=== PATIENT | female | born 1980 | race African-American/Black ===

== ENCOUNTER 2018-02-05 00:24 | Emergency (ER) | payer OTHER ==
[~2018-02-05] VITALS: Ht 152.4 cm; Wt 55.0 kg
[2018-02-05 00:59] VITALS: BP 113/67; PULSE 108; RESP 18; TEMP 98.6; O2SAT 99
[2018-02-05] MEDS ORDERED: SODIUM CHLOR 0.9% 1000 ML INJ 1,000 ML IV SCH (02:31)
--- NOTE | 2018-02-05 02:37 | PD ---
HPI Chief Complaint: ENT Complaint Time Seen by Provider: 02:31 Travel History International Travel<30 days: No Contact w/Intl Traveler<30days: No Traveled to known affect area: No History of Present Illness HPI 37-year-old female presents for evaluation of sore throat. It hurts to swallow. Symptoms started 5 days ago. She reports associated nausea. Denies vomiting, fevers or chills, cough or congestion. In addition the patient has had a small bump on her left antonio for the past few days which is tender. She has no other complaints at this time. [facility] Past Medical History Medical History: Denies Significant Hx Diminished Hearing: No Tetanus Vaccination: Unknown Influenza Vaccination: No ?: Not LMP: 01/19/2018 Past Surgical History Section: Yes Social History Alcohol Use: No Tobacco Use: No Substance Use: No Allergies-Medications (Allergen,Severity, Reaction): Coded Allergies: No Known Allergies (Unverified Allergy, Unknown, 02/05/18) Reported Meds & Prescriptions Reported Meds & Active Scripts Active Ibuprofen 600 Mg Tab 600 Mg PO TID PRN Nystatin Liq 100,000 unit/ml Susp 5 Ml SWISH-SWAL QID 10 Days Review of Systems Except as stated in HPI: all other systems reviewed are Neg Physical Exam Narrative GENERAL: Well-developed well-nourished female no acute distress SKIN: Warm and dry. HEAD: Atraumatic. Normocephalic. EYES: Pupils equal and round. No scleral icterus. No injection or drainage. ENT: No nasal bleeding or discharge. Mucous membranes pink and moist. Thrush noted on the tongue. The patient has trismus and it is difficult to see her oropharynx after multiple attempts. NECK: Trachea midline. No JVD. There is no lymphadenopathy. CARDIOVASCULAR: Regular rate and rhythm. No murmur appreciated. RESPIRATORY: No accessory muscle use. Clear to auscultation. Breath sounds equal bilaterally. GASTROINTESTINAL: Abdomen soft, non-tender, nondistended. Hepatic and splenic margins not palpable. MUSCULOSKELETAL: No obvious deformities. No clubbing. No cyanosis. No edema. NEUROLOGICAL: Awake and alert. No obvious cranial nerve deficits. Motor grossly within normal limits. Normal speech. PSYCHIATRIC: Appropriate mood and affect; insight and judgment normal. Data Data Last Documented VS Vital Signs Date Time Temp Pulse Resp B/P (MAP) Pulse Ox O2 Delivery O2 Flow Rate FiO2 3/18/18 12:38 94 20 111/75 (87) 99 02/05/18 08:13 97.3 Room Air Orders Orders Hiv Antibody Screen (02/05/18 02:31) Ct Soft Tiss Neck W Iv Cont (02/05/18 ) Basic Metabolic Panel (Bmp) (02/05/18 02:31) Complete Blood Count With Diff (02/05/18 02:31) Lactic Acid (02/05/18 02:31) Iv Access Insert/Monitor (02/05/18 02:31) Sodium Chlor 0.9% 1000 Ml Inj (Ns 1000 M (02/05/18 02:31) Ketorolac Inj (Toradol Inj) (02/05/18 02:45) Ed Urine Pregnancytest Poc (02/05/18 02:31) Group A Rapid Strep Screen (02/05/18 02:31) Ondansetron Inj (Zofran Inj) (02/05/18 02:45) Strep Culture (Group A) (02/05/18 04:00) Nystatin (Mycostatin) (02/05/18 06:15) Chest, Single Ap (02/05/18 ) Iohexol 350 Inj (Omnipaque 350 Inj) (02/05/18 06:25) Ct Abd/Pel W/O Iv Contrast (02/05/18 06:57) Ct Thorax/ Chest Wo Iv Contras (02/05/18 ) Morphine Inj (Morphine Inj) (02/05/18 07:45) Sodium Chlor 0.9% 1000 Ml Inj (Ns 1000 M (02/05/18 08:30) Ed Discharge Order (02/05/18 09:26) Mandatory Outpatient Referral (02/05/18 09:26) Labs Laboratory Tests Test 02/05/18 03:52 White Blood Count 8.2 TH/MM3 Red Blood Count 2.69 MIL/MM3 Hemoglobin 9.0 GM/DL Hematocrit 26.1 % Mean Corpuscular Volume 97.0 FL Mean Corpuscular Hemoglobin 33.3 PG Mean Corpuscular Hemoglobin Concent 34.3 % Red Cell Distribution Width 16.9 % Platelet Count 313 TH/MM3 Mean Platelet Volume 7.6 FL Neutrophils (%) (Auto) 48.0 % Lymphocytes (%) (Auto) 39.9 % Monocytes (%) (Auto) 11.6 % Eosinophils (%) (Auto) 0.4 % Basophils (%) (Auto) 0.1 % Neutrophils # (Auto) 3.9 TH/MM3 Lymphocytes # (Auto) 3.3 TH/MM3 Monocytes # (Auto) 1.0 TH/MM3 Eosinophils # (Auto) 0.0 TH/MM3 Basophils # (Auto) 0.0 TH/MM3 CBC Comment AUTO DIFF Differential Total Cells Counted 100 Neutrophils % (Manual) 50 % Band Neutrophils % 2 % Lymphocytes % 27 % Monocytes % 10 % Eosinophils % 1 % Neutrophils # (Manual) 4.4 TH/MM3 Myelocytes 2 % Differential Comment FINAL DIFF MANUAL Atypical Lymphocytes 8 % Platelet Estimate NORMAL Platelet Morphology Comment NORMAL Red Cell Morphology Comment NORMAL Blood Urea Nitrogen 30 MG/DL Creatinine 0.92 MG/DL Random Glucose 89 MG/DL Calcium Level 9.4 MG/DL Sodium Level 142 MEQ/L Potassium Level 4.6 MEQ/L Chloride Level 109 MEQ/L Carbon Dioxide Level 24.4 MEQ/L Anion Gap 9 MEQ/L Estimat Glomerular Filtration Rate 82 ML/MIN Lactic Acid Level 1.1 mmol/L HIV (1&2) Ab and P24 Ag, 4th Gener REFLEX MDM Medical Decision Making Medical Screen Exam Complete: Yes Emergency Medical Condition: Yes Medical Record Reviewed: Yes Differential Diagnosis Thrush, esophagitis, peritonsillar abscess, pharyngitis, tonsillitis Narrative Course The patient has thrush in her mouth. I am unable to see her oropharynx as she has significant difficulty opening her mouth and gag reflex when attempting to use a tongue depressor. She reports that her of HIV last year and she avoided being tested because she was scared. Plan is for lab work, CT soft tissue neck. She will be given IV fluids, Toradol, Zofran. CBC reveals a hemoglobin of 9.0 otherwise unremarkable, BMP reveals a BUN of 30 otherwise unremarkable, lactic acid is within normal limits. Upon reexamination the patient feels improved after the administration of fluids and Toradol. Still unable to visualize her oropharynx. Oral nystatin has been ordered. The patient now mentions that she has had a cough for the past few months as well and therefore chest x-ray has been ordered. Given the history, new onset thrush, with history of HIV, the concern is that the patient has new onset HIV. The possibility of admission for further treatment of this was discussed with the patient however she reports that she has children at home and would prefer to follow-up with infectious disease specialist as an outpatient. CT imaging of the soft tissue neck: CONCLUSION: 1. Multiple borderline prominent lymph nodes in both cervical chains as well as the axilla. While these could be reactive, I would suggest additional images of the chest and abdomen to evaluate for additional lymph nodes as findings could be characteristic of lymphoma. 2. There is some soft tissue density anterior mediastinum. Again, this can be further evaluated with a dedicated post contrasted CT scan of the chest. 3. Prominence of the adenoidal tissues. Therefore CT of the abdomen and pelvis and thorax have been ordered. The oncoming provider will follow up on these results. The HIV antibody test is currently pending. I have written down the name of 2 local infectious disease specialist whom the patient could follow-up with upon discharge. A prescription for nystatin has also been written. Additional Instructions: Follow-up with an infectious disease specialist such as: Dr. Darinel Ochoa at [phone]) OR Dr. Adrian Ibarra at [address] B Scripts Ibuprofen (Ibuprofen) 600 Mg Tab 600 MG PO TID Y for PAIN SCALE 1 TO 10, #21 TAB 0 Refills Prov: Karen Mar 02/05/18 Nystatin Liq (Nystatin Liq) 100,000 unit/ml Susp 5 ML SWISH-SWAL QID for Infection for 10 Days, ML 0 Refills Prov: Balaji Puentes MD 02/05/18 Kem Daniels Feb 05, 2018 02:37
[2018-02-05] MEDS ORDERED: KETOROLAC TROMETHAMINE 30 MG/ML (IVP) VIAL IVP ONE (02:45)
[2018-02-05] MEDS ORDERED: ONDANSETRON HCL 4 MG/2 ML VIAL IV PUSH ONE (02:45)
[2018-02-05 04:05] VITALS: BP 115/74; PULSE 102; RESP 18; O2SAT 100
[2018-02-05 04:42] LABS: AUTOMATED NEUTROPHIL # 3.9 TH/MM3 (1.8-7.7); BASOPHIL % 0.1 % (0.0-2.0); EOSINOPHIL % 0.4 % (0.0-4.0); HEMATOCRIT 26.1 % (35.0-46.0); LYMPH % 39.9 % (9.0-44.0); LYMPHOCYTE # 3.3 TH/MM3 (1.0-4.8); MEAN CORPUSCULAR HEMOGLOBIN 33.3 PG (27.0-34.0); MEAN CORPUSCULAR HGB CONC 34.3 % (32.0-36.0); MEAN PLATELET VOLUME 7.6 FL (7.0-11.0); MONO % 11.6 % (0.0-8.0); PLATELET COUNT 313 TH/MM3 (150-450); RED BLOOD COUNT 2.69 MIL/MM3 (4.00-5.30); RED CELL DISTRIBUTION WIDTH 16.9 % (11.6-17.2); WHITE BLOOD COUNT 8.2 TH/MM3 (4.0-11.0)
[2018-02-05 04:46] LABS: BICARBONATE 24.4 MEQ/L (21.0-32.0); CALCIUM 9.4 MG/DL (8.5-10.1); CREATININE 0.92 MG/DL (0.50-1.00)
[2018-02-05 05:37] LABS: ATYPICAL LYMPHOCYTES 8 % (0-0); BANDS 2 % (0-6); LYMPHOCYTES 27 % (9-44); MONOCYTES 10 % (0-8); MYELOCYTES 2 % (0-0); NEUTROPHIL # MANUAL DIFF 4.4 TH/MM3 (1.8-7.7); POLYS (SEG NEUTROPHILS) 50 % (16-70)
--- NOTE | 2018-02-05 06:06 | PD ---
Data Data Last Documented VS Vital Signs Date Time Temp Pulse Resp B/P (MAP) Pulse Ox O2 Delivery O2 Flow Rate FiO2 02/05/18 08:13 97.3 98 16 108/73 (85) 99 Room Air Orders Orders Hiv Antibody Screen (02/05/18 02:31) Ct Soft Tiss Neck W Iv Cont (02/05/18 ) Basic Metabolic Panel (Bmp) (02/05/18 02:31) Complete Blood Count With Diff (02/05/18 02:31) Lactic Acid (02/05/18 02:31) Iv Access Insert/Monitor (02/05/18 02:31) Sodium Chlor 0.9% 1000 Ml Inj (Ns 1000 M (02/05/18 02:31) Ketorolac Inj (Toradol Inj) (02/05/18 02:45) Ed Urine Pregnancytest Poc (02/05/18 02:31) Group A Rapid Strep Screen (02/05/18 02:31) Ondansetron Inj (Zofran Inj) (02/05/18 02:45) Strep Culture (Group A) (02/05/18 04:00) Nystatin (Mycostatin) (02/05/18 06:15) Chest, Single Ap (02/05/18 ) Iohexol 350 Inj (Omnipaque 350 Inj) (02/05/18 06:25) Ct Abd/Pel W/O Iv Contrast (02/05/18 06:57) Ct Thorax/ Chest Wo Iv Contras (02/05/18 ) Morphine Inj (Morphine Inj) (02/05/18 07:45) Sodium Chlor 0.9% 1000 Ml Inj (Ns 1000 M (02/05/18 08:30) Urinalysis - C+S If Indicated (02/05/18 08:30) Ed Discharge Order (02/05/18 09:26) Mandatory Outpatient Referral (02/05/18 09:26) Labs Laboratory Tests Test 02/05/18 03:52 White Blood Count 8.2 TH/MM3 Red Blood Count 2.69 MIL/MM3 Hemoglobin 9.0 GM/DL Hematocrit 26.1 % Mean Corpuscular Volume 97.0 FL Mean Corpuscular Hemoglobin 33.3 PG Mean Corpuscular Hemoglobin Concent 34.3 % Red Cell Distribution Width 16.9 % Platelet Count 313 TH/MM3 Mean Platelet Volume 7.6 FL Neutrophils (%) (Auto) 48.0 % Lymphocytes (%) (Auto) 39.9 % Monocytes (%) (Auto) 11.6 % Eosinophils (%) (Auto) 0.4 % Basophils (%) (Auto) 0.1 % Neutrophils # (Auto) 3.9 TH/MM3 Lymphocytes # (Auto) 3.3 TH/MM3 Monocytes # (Auto) 1.0 TH/MM3 Eosinophils # (Auto) 0.0 TH/MM3 Basophils # (Auto) 0.0 TH/MM3 CBC Comment AUTO DIFF Differential Total Cells Counted 100 Neutrophils % (Manual) 50 % Band Neutrophils % 2 % Lymphocytes % 27 % Monocytes % 10 % Eosinophils % 1 % Neutrophils # (Manual) 4.4 TH/MM3 Myelocytes 2 % Differential Comment FINAL DIFF MANUAL Atypical Lymphocytes 8 % Platelet Estimate NORMAL Platelet Morphology Comment NORMAL Red Cell Morphology Comment NORMAL Blood Urea Nitrogen 30 MG/DL Creatinine 0.92 MG/DL Random Glucose 89 MG/DL Calcium Level 9.4 MG/DL Sodium Level 142 MEQ/L Potassium Level 4.6 MEQ/L Chloride Level 109 MEQ/L Carbon Dioxide Level 24.4 MEQ/L Anion Gap 9 MEQ/L Estimat Glomerular Filtration Rate 82 ML/MIN Lactic Acid Level 1.1 mmol/L HIV (1&2) Ab and P24 Ag, 4th Gener REFLEX MDM Supervised Visit with RUDY: Yes Narrative Course I, Dr. Puentes, have reviewed the advance practice practitioner's documentation and am in agreement, met with the patient face to face, made the diagnosis, and the medical decision making was done by me. *My assessment and Findings: Patient seen and examined by me in addition to Kem Daniels, this is a patient who presents emergency department with significant oral thrush, she has had some difficulty swallowing and I suspect esophageal candidiasis as well. Patient was to a male with HIV for some time and he has since . I highly suspect the patient has HIV disease and likely this is an AIDS defining illness. I agree for HIV testing patient will be made to make sure that she is not neutropenic. I discussed her the probable diagnosis and she was recommended for admission for ID consult however the patient has 2 children to take care of and she would like to go home. I discussed that she needs to follow with infectious disease and will be discharged on oral antifungal's. She was invited to return to the emergency department any time she deem necessary. Scripts Nystatin Liq (Nystatin Liq) 100,000 unit/ml Susp 5 ML SWISH-SWAL QID for Infection for 10 Days, ML 0 Refills Prov: Balaji Puentes MD 02/05/18 Condition: Stable Balaji Puentes MD Feb 05, 2018 06:06
[2018-02-05] MEDS ORDERED: NYSTATIN 500,000 UNIT TAB PO ONE (06:15)
[2018-02-05] MEDS ORDERED: IOHEXOL 350 MG/ML 10 ML VIAL (for RAD DIAG) IVCONTRAST ONE (06:25)
[2018-02-05] MEDS ORDERED: NYST1000 SWISH-SWAL (06:37)
--- NOTE | 2018-02-05 06:55 | RADRPT ---
EXAM DATE/TIME: 02/05/2018 06:16 [facility] COMPARISON: No previous studies available for comparison. INDICATIONS : Sore throat and fever for one week IV CONTRAST: 70 cc Omnipaque 350 (iohexol) IV RADIATION DOSE: 19.30 CTDIvol (mGy) MEDICAL HISTORY : None SURGICAL HISTORY : None. ENCOUNTER: Initial ACUITY: 1 week PAIN SCALE: 8/10 LOCATION: neck TECHNIQUE: Volumetric scanning of the neck was performed. Using automated exposure control and adjustment of th e mA and/or kV according to patient size, radiation dose was kept as low as reasonably achievable to obtain optimal diagnostic quality images. DICOM format image data is available electronically for r eview and comparison. FINDINGS: NASOPHARYNX: Prominent adenoidal tissues in the nasopharynx. No mucosal thickening or mass is seen. OROPHARYNX: The intrinsic muscles of the tongue are symmetric. The tonsillar pillars are intact. The prevertebr al soft tissues are not thickened. LARYNX: The supraglottic, glottic, and infraglottic structures are intact. PARAPHARYNGEAL: The parapharyngeal space is intact. SALIVARY GLANDS: Punctate calcifications in the parotid glands bilaterally. LYMPH NODES: Portal and prominent lymph nodes are seen in both cervical chains. There also appear to be some borde rline prominent lymph nodes in the axilla which are poorly visualized on the current exam. Soft tissu e density in the anterior mediastinum.. THYROID: Homogeneous enhancement without evidence of nodule. BONES: Unremarkable. CONCLUSION: 1. Multiple borderline prominent lymph nodes in both cervical chains as well as the axilla. While the se could be reactive, I would suggest additional images of the chest and abdomen to evaluate for [place] tional lymph nodes as findings could be characteristic of lymphoma. 2. There is some soft tissue density anterior mediastinum. Again, this can be further evaluated with a dedicated post contrasted CT scan of the chest. 3. Prominence of the adenoidal tissues. Guevara Payne MD on February 05, 2018 at 6:47 Board Certified Radiologist. This report was verified electronically.
--- NOTE | 2018-02-05 06:56 | RADRPT ---
EXAM DATE/TIME: 02/05/2018 06:21 [facility] COMPARISON: No previous studies available for comparison. INDICATIONS : Cough. MEDICAL HISTORY : None. SURGICAL HISTORY : None. ENCOUNTER: Initial ACUITY: 3 months PAIN SCORE: 0/10 LOCATION: Bilateral chest FINDINGS: A single view of the chest demonstrates the lungs to be symmetrically aerated without evidence of mas s, infiltrate or effusion. The cardiomediastinal contours are unremarkable. Osseous structures are intact. CONCLUSION: No acute cardiac pulmonary process. Guevara Payne MD on February 05, 2018 at 6:53 Board Certified Radiologist. This report was verified electronically.
[2018-02-05] MEDS ORDERED: MORPHINE SULFATE 2 MG/ML INJ IV PUSH ONE (07:45)
--- NOTE | 2018-02-05 07:57 | PD ---
Physical Exam Date Seen by Provider: Feb 05, 2018 Time Seen by Provider: 07:45 Narrative I resume care from PETRA Brownlee awaiting results of CT abdomen/pelvis and CT thorax/chest. This is a 37 year old female who presents for evaluation of a sore throat. Symptoms started approximately a week ago. Patient also complains of a chronic cough. She states her last year of AIDS and she has never been tested. Patient had chest x-ray, CT soft tissue neck, and labs completed. She is still awaiting CT thorax/chest and CT abdomen/ pelvis as well as rapid HIV test. GENERAL: Thin female patient, ambulatory. Afebrile. SKIN: Warm and dry. HEAD: Normocephalic. Atraumatic. ENT: Patient has thrush noted to tongue. She has severe pain when tongue blade is attempted to visualize oropharynx and is unsuccessful. Bilateral tympanic membranes are clear without erythema or perforation. EYES: No scleral icterus. No injection or drainage. NECK: Supple, trachea midline. No JVD or lymphadenopathy. CARDIOVASCULAR: Regular rate and rhythm without murmurs, gallops, or rubs. RESPIRATORY: Breath sounds equal bilaterally. No accessory muscle use. Lung sounds are clear to auscultation. GASTROINTESTINAL: Abdomen soft, non-tender, nondistended. MUSCULOSKELETAL: No cyanosis, or edema. BACK: Nontender without obvious deformity. No CVA tenderness. Data Data Last Documented VS Vital Signs Date Time Temp Pulse Resp B/P (MAP) Pulse Ox O2 Delivery O2 Flow Rate FiO2 02/05/18 08:13 97.3 98 16 108/73 (85) 99 Room Air Orders Orders Hiv Antibody Screen (02/05/18 02:31) Ct Soft Tiss Neck W Iv Cont (02/05/18 ) Basic Metabolic Panel (Bmp) (02/05/18 02:31) Complete Blood Count With Diff (02/05/18 02:31) Lactic Acid (02/05/18 02:31) Iv Access Insert/Monitor (02/05/18 02:31) Sodium Chlor 0.9% 1000 Ml Inj (Ns 1000 M (02/05/18 02:31) Ketorolac Inj (Toradol Inj) (02/05/18 02:45) Ed Urine Pregnancytest Poc (02/05/18 02:31) Group A Rapid Strep Screen (02/05/18 02:31) Ondansetron Inj (Zofran Inj) (02/05/18 02:45) Strep Culture (Group A) (02/05/18 04:00) Nystatin (Mycostatin) (02/05/18 06:15) Chest, Single Ap (02/05/18 ) Iohexol 350 Inj (Omnipaque 350 Inj) (02/05/18 06:25) Ct Abd/Pel W/O Iv Contrast (02/05/18 06:57) Ct Thorax/ Chest Wo Iv Contras (02/05/18 ) Morphine Inj (Morphine Inj) (02/05/18 07:45) Sodium Chlor 0.9% 1000 Ml Inj (Ns 1000 M (02/05/18 08:30) Urinalysis - C+S If Indicated (02/05/18 08:30) Ed Discharge Order (02/05/18 09:26) Mandatory Outpatient Referral (02/05/18 09:26) Labs Laboratory Tests Test 02/05/18 03:52 White Blood Count 8.2 TH/MM3 Red Blood Count 2.69 MIL/MM3 Hemoglobin 9.0 GM/DL Hematocrit 26.1 % Mean Corpuscular Volume 97.0 FL Mean Corpuscular Hemoglobin 33.3 PG Mean Corpuscular Hemoglobin Concent 34.3 % Red Cell Distribution Width 16.9 % Platelet Count 313 TH/MM3 Mean Platelet Volume 7.6 FL Neutrophils (%) (Auto) 48.0 % Lymphocytes (%) (Auto) 39.9 % Monocytes (%) (Auto) 11.6 % Eosinophils (%) (Auto) 0.4 % Basophils (%) (Auto) 0.1 % Neutrophils # (Auto) 3.9 TH/MM3 Lymphocytes # (Auto) 3.3 TH/MM3 Monocytes # (Auto) 1.0 TH/MM3 Eosinophils # (Auto) 0.0 TH/MM3 Basophils # (Auto) 0.0 TH/MM3 CBC Comment AUTO DIFF Differential Total Cells Counted 100 Neutrophils % (Manual) 50 % Band Neutrophils % 2 % Lymphocytes % 27 % Monocytes % 10 % Eosinophils % 1 % Neutrophils # (Manual) 4.4 TH/MM3 Myelocytes 2 % Differential Comment FINAL DIFF MANUAL Atypical Lymphocytes 8 % Platelet Estimate NORMAL Platelet Morphology Comment NORMAL Red Cell Morphology Comment NORMAL Blood Urea Nitrogen 30 MG/DL Creatinine 0.92 MG/DL Random Glucose 89 MG/DL Calcium Level 9.4 MG/DL Sodium Level 142 MEQ/L Potassium Level 4.6 MEQ/L Chloride Level 109 MEQ/L Carbon Dioxide Level 24.4 MEQ/L Anion Gap 9 MEQ/L Estimat Glomerular Filtration Rate 82 ML/MIN Lactic Acid Level 1.1 mmol/L HIV (1&2) Ab and P24 Ag, 4th Gener REFLEX MDM Supervised Visit with RUDY: No Interpretation(s) Chest x-ray - CONCLUSION: No acute cardiac pulmonary process. CT soft tissue neck - CONCLUSION: 1. Multiple borderline prominent lymph nodes in both cervical chains as well as the axilla. While these could be reactive, I would suggest additional images of the chest and abdomen to evaluate for additional lymph nodes as findings could be characteristic of lymphoma. 2. There is some soft tissue density anterior mediastinum. Again, this can be further evaluated with a dedicated post contrasted CT scan of the chest. 3. Prominence of the adenoidal tissues. CT abdomen/pelvis - CT chest - Narrative Course 37 year old female presents to the emergency department for evaluation of sore throat and cough. CBC, BMP, lactic acid, strep swab, UPT, chest x-ray, CT soft tissue neck with IV contrast, CT abdomen/pelvis, CT thorax/chest were ordered and pending. Patient was given NS 1 L IV bolus, Toradol 30 mg IV, Zofran 4 mg IV, Nystating 500,000 units PO. Patient is requesting further pain medications , she is given Morphine 2 mg IV. CBC shows normal WBC of 8.2, HGB 9.0, HCT 26.1. BMP shows no acute abnormality. Lactic acid is 1.1. Strep is negative. UPT is negative. Chest x -ray shows no acute cardiopulmonary disease. CT soft tissue neck shows m ultiple borderline prominent lymph nodes in both cervical chains as well as the axilla. While these could be reactive, I would suggest additional images of the chest and abdomen to evaluate for additional lymph nodes as findings could be characteristic of lymphoma; There is some soft tissue density anterior mediastinum. Again, this can be further evaluated with a dedicated post contrasted CT scan of the chest; Prominence of the adenoidal tissues. CT abdomen/pelvis shows splenomegaly, no evidence of adenopathy within the abdomen or pelvis. CT chest shows bilateral moderately bulky adenopathy with additional small nodes identified in the supraclavicular region. The prevascular soft tissues may represents residual thymus versus confluent adenopathy, splenomegaly. I discussed the case with my attending physician, Dr. Parker, who states patient should be admitted for dehydration, thrush, dysphagia, lymphadenopathy. Patient is given 2nd liter IV NS. I discussed the patient's case with the hospitalist, Dr. Llamas, who states the patient can be discharged to follow up with infectious disease. A mandatory referral will be placed. The patient agrees to this. She is instructed to return for any acute worsening of symptoms. Diagnosis Primary Impression: Dehydration Additional Impressions: Thrush of mouth and esophagus Dysphagia Qualified Codes: R13.10 - Dysphagia, unspecified Lymphadenopathy Admitting Information Admitting Physician Requests: Observation Referrals: Infectious Disease Specialist call for appointment Patient Instructions: General Instructions Departure Forms: Tests/Procedures, Work Release Enter return to work date: Feb 07, 2018 Additional Instruction: Follow-up with an infectious disease specialist such as: Dr. Darinel Ochoa at [address] [phone]) OR Dr. Adrian Ibarra at [address] B Med/Other Pt SpecificInfo: Prescription(s) given Scripts Nystatin Liq (Nystatin Liq) 100,000 unit/ml Susp 5 ML SWISH-SWAL QID for Infection for 10 Days, ML 0 Refills Prov: Balaji Puentes MD 02/05/18 Disposition: 01 DISCHARGE HOME Condition: Stable ZaidKaren Feb 05, 2018 07:56
--- NOTE | 2018-02-05 08:02 | RADRPT ---
EXAM DATE/TIME: 02/05/2018 07:45 [facility] COMPARISON: CT SOFT TISSUE NECK W CONTRAST, February 05, 2018, 6:16. CHEST SINGLE AP, February 05, 2018, 6:21. INDICATIONS : Lymphoma, mass, sore throat. ORAL CONTRAST: No oral contrast ingested. RADIATION DOSE: 4.84 CTDIvol (mGy) ; Combined studies - Thorax/Abdomen/Pelvis MEDICAL HISTORY : None SURGICAL HISTORY : C section ENCOUNTER: Initial ACUITY: 1 day PAIN SCALE: 9/10 LOCATION: diffuse abdomen TECHNIQUE: Volumetric scanning of the abdomen and pelvis was performed. Using automated exposure control and ad justment of the mA and/or kV according to patient size, radiation dose was kept as low as reasonably achievable to obtain optimal diagnostic quality images. DICOM format image data is available electro nically for review and comparison. FINDINGS: LOWER LUNGS: The visualized lower lungs are clear. LIVER: Homogeneous density without lesion. There is no dilation of the biliary tree. No calcified gallston es. SPLEEN: The spleen is enlarged measuring 15.4 centimeters in the craniocaudal distribution and extending infe rior to the margin of the left kidney. PANCREAS: Within normal limits. KIDNEYS: Normal in size and shape. There is no mass, stone, or hydronephrosis. ADRENAL GLANDS: Within normal limits. VASCULAR: There is no aortic aneurysm. BOWEL/MESENTERY: The stomach, small bowel, and colon demonstrate no acute abnormality. There is no free intraperitone al air or fluid. ABDOMINAL WALL: Within normal limits. RETROPERITONEUM: There is no lymphadenopathy. BLADDER: No wall thickening or mass. REPRODUCTIVE: Within normal limits. INGUINAL: There is no lymphadenopathy or hernia. MUSCULOSKELETAL: Within normal limits for patient age. CONCLUSION: Splenomegaly. No evidence of adenopathy within the abdomen or pelvis.. Priscilla Sherman MD on February 05, 2018 at 7:57 Board Certified Radiologist. This report was verified electronically.
--- NOTE | 2018-02-05 08:07 | RADRPT ---
EXAM DATE/TIME: 02/05/2018 07:45 [place] COMPARISON: CT ABDOMEN & PELVIS W/O CONTRAST, February 05, 2018, 7:45. INDICATIONS : Lymphoma, mass, sore throat. RADIATION DOSE: 4.84 CTDIvol (mGy) ; Combined studies - Thorax/Abdomen/Pelvis MEDICAL HISTORY : None SURGICAL HISTORY : C section ENCOUNTER: Initial ACUITY: 1 day PAIN SCALE: 9/10 LOCATION: chest TECHNIQUE: Volumetric scanning of the chest was performed. Using automated exposure control and adjustment of t he mA and/or kV according to patient size, radiation dose was kept as low as reasonably achievable to obtain optimal diagnostic quality images. DICOM format image data is available electronically for r eview and comparison. Follow-up recommendations for detected pulmonary nodules are based at a minimum on nodule size and pa tient risk factors according to Fleischner Society Guidelines. FINDINGS: LUNGS: There is no consolidation or pneumothorax. No concerning pulmonary nodule is visualized. PLEURAE: There is no pleural thickening or pleural effusion. MEDIASTINUM: The heart size is normal. There is a nodular appearance of anterior mediastinal soft tissue which giv en the patient's age may represent residual thymus versus confluent lymphadenopathy. No evidence of h ilar adenopathy. AXILLAE: Bilateral moderately bulky lymphadenopathy. Small supraclavicular nodes are also present. MUSCULOSKELETAL: Within normal limits for patient age. MISCELLANEOUS: The visualized upper abdominal organs demonstrate no acute abnormality. Splenomegaly was noted on com parison exam of the abdomen and pelvis. CONCLUSION: Bilateral moderately bulky axillary adenopathy with additional small nodes identified in the supracla vicular region. The prevascular soft tissue may represent residual thymus versus confluent adenopathy . Splenomegaly.. Priscilla Sherman MD on February 05, 2018 at 8:01 Board Certified Radiologist. This report was verified electronically.
[2018-02-05 08:13] VITALS: BP 108/73; PULSE 98; RESP 16; TEMP 97.3; O2SAT 99
[2018-02-05] MEDS ORDERED: SODIUM CHLOR 0.9% 1000 ML INJ 1,000 ML IV ONE (08:30)
[2018-02-05] MEDS ORDERED: IBUP-232 PO ×2 (11:40→11:41)
[2018-02-05 12:38] VITALS: BP 111/75
== END 2018-02-05 12:40 | disposition home or self-care (01) ==
LOC: NEPD 00:24
DX: E86.0 Dehydration (principal); B37.81 Candidal esophagitis; B37.0 Candidal stomatitis; Z20.6 Contact with and (suspected) exposure to human immunodeficiency virus [HIV]
CPT/HCPCS: 70491; 71045; 71250; 74176; 80048; 83605; 84703; 85007; 85027; 86701; 86702; 86703; 87081; 87880; 96361; 96374; 96375; 99285; J1885; J2270; J2405; J7030; Q9967